=== PATIENT | female | born 1985 | race Caucasian/White ===

== ENCOUNTER → 2016-04-25 | Outpatient (CLI) | payer OTHER ==
[~2016-04-25] MED LIST: CELEXA 20MG20 MG/TAB PO; IBU600 MG PO; PERCOCET 325 MG1 TA2 PO
== END ==
LOC: COL.RAD 07:15
DX: E05.90 Thyrotoxicosis, unspecified without thyrotoxic crisis or storm (principal)
CPT/HCPCS: A9516

== ENCOUNTER → 2016-10-10 | Outpatient (REF) | LOC: WSOH 08:18 | DX: Z01.10 Encounter for examination of ears and hearing without abnormal findings (principal) ==